=== PATIENT | female | born 1985 | race Caucasian/White ===

== ENCOUNTER 2018-06-05 15:27 | Emergency (ER) | payer SELFPAY ==
[~2018-06-05] VITALS: Ht 175.3 cm; Wt 98.9 kg
[2018-06-05] MEDS ORDERED: LIDOCAINE 2% VISCOUS 15 ML UDC PO ONE (15:45)
[2018-06-05] MEDS ORDERED: ANTACID SUSP 30 ML UDC (MYLANTA) PO ONE (15:45)
--- NOTE | 2018-06-05 15:51 | ED Chest Pain ---
General Chief Complaint: Chest Pain Stated Complaint: CHEST PAINS, SOB Source: patient, family Exam Limitations: no limitations History of Present Illness Date Seen by Provider: Jun 05, 2018 Time Seen by Provider: 15:31 Initial Comments Here with report of central chest pain at the area of the low sternum that sometimes radiates a little bit to the side each way. Onset one hour ago. Pain is sharp and burning. She feels short of breath. This occurred at the end of work. Denies any recent surgeries or long trips. Denies recent trauma. Denies nausea or vomiting. Timing/Duration: 1 hour Severity/Quality: moderate, burning, sharp Location: central Radiation: epigastric Activities at Onset: none Prior CP/Workup: no prior chest pain Modifying Factors: improves with rest ASA po DIRECTOR OF REHABILITATIVE SERVICES: No NTG SL DIRECTOR OF REHABILITATIVE SERVICES: No Associated Symptoms: No back pain, No nausea/vomiting; shortness of breath; No weakness Allergies and Home Medications Allergies Coded Allergies: No Known Drug Allergies (Verified Allergy, Unknown, 11/05/07) Patient Home Medication List Home Medication List Reviewed: Yes Review of Systems Review of Systems Constitutional: see HPI; No chills, No fever EENTM: Nose Congestion; No Throat Pain Respiratory: Denies Cough; Shortness of Air Cardiovascular: Chest Pain; Denies Edema, Denies Irregular Heart Rate Gastrointestinal: See HPI; Denies Nausea, Denies Vomiting Genitourinary: No Symptoms Reported Musculoskeletal: no symptoms reported Skin: no symptoms reported Psychiatric/Neurological: No Symptoms Reported All Other Systems Reviewed Negative Unless Noted: Yes Past Kjgvbbq-Qpryyw-Tbjbvk Hx Past Med/Social Hx: Reviewed Nursing Past Med/Soc Hx Patient Social History Alcohol Use: Denies Use Recreational Drug Use: No Smoking Status: Current Everyday Smoker Recent Foreign Travel: No Contact w/Someone Who Travel: No Past Medical History Surgeries: No Respiratory: No Cardiac: No Neurological: No : No Reproductive Disorders: No Gastrointestinal: Yes Gastroesophageal Reflux Musculoskeletal: No Endocrine: No Cancer: No Psychosocial: No Family Medical History Reviewed Nursing Family Hx No Pertinent Family Hx Physical Exam Vital Signs Vital Signs - First Documented 06/05/18 15:30 Temp 97.1 Pulse 77 Resp 16 B/P (MAP) 104/78 (87) Pulse Ox 99 Capillary Refill : Height, Weight, BMI Height: '" Weight: lbs. oz. kg; BMI Method: General Appearance: No Apparent Distress, WD/WN HEENT: PERRL/EOMI, Pharynx Normal Neck: Non Tender, Supple Respiratory: Lungs Clear, Normal Breath Sounds, Other (tender along the anterior chest wall over the lower sternum and reproducible.) Cardiovascular: Regular Rate, Rhythm, No Murmur Gastrointestinal: Non Tender, Soft Extremity: Normal Range of Motion, Non Tender Neurologic/Psychiatric: Alert, Oriented x3 Progress/Results/Core Measures Results/Orders Lab Results Laboratory Tests Test 06/05/18 15:43 Range/Units White Blood Count 5.5 4.3-11.0 10^3/uL Red Blood Count 4.24 L 4.35-5.85 10^6/uL Hemoglobin 13.4 11.5-16.0 G/DL Hematocrit 39 35-52 % Mean Corpuscular Volume 93 80-99 FL Mean Corpuscular Hemoglobin 32 25-34 PG Mean Corpuscular Hemoglobin Concent 34 32-36 G/DL Red Cell Distribution Width 12.6 10.0-14.5 % Platelet Count 259 130-400 10^3/uL Mean Platelet Volume 10.6 H 7.4-10.4 FL Neutrophils (%) (Auto) 60 42-75 % Lymphocytes (%) (Auto) 32 12-44 % Monocytes (%) (Auto) 6 0-12 % Eosinophils (%) (Auto) 1 0-10 % Basophils (%) (Auto) 0 0-10 % Neutrophils # (Auto) 3.3 1.8-7.8 X 10^3 Lymphocytes # (Auto) 1.7 1.0-4.0 X 10^3 Monocytes # (Auto) 0.3 0.0-1.0 X 10^3 Eosinophils # (Auto) 0.1 0.0-0.3 10^3/uL Basophils # (Auto) 0.0 0.0-0.1 10^3/uL D-Dimer 0.27 0.00-0.49 UG/ML Sodium Level 142 135-145 MMOL/L Potassium Level 3.7 3.6-5.0 MMOL/L Chloride Level 104 98-107 MMOL/L Carbon Dioxide Level 25 21-32 MMOL/L Anion Gap 13 5-14 MMOL/L Blood Urea Nitrogen 5 L 7-18 MG/DL Creatinine 0.70 0.60-1.30 MG/DL Estimat Glomerular Filtration Rate > 60 BUN/Creatinine Ratio 7 Glucose Level 70 70-105 MG/DL Calcium Level 8.9 8.5-10.1 MG/DL Corrected Calcium 8.7 8.5-10.1 MG/DL Magnesium Level 1.8 1.8-2.4 MG/DL Total Bilirubin 0.3 0.1-1.0 MG/DL Aspartate Amino Transf (AST/SGOT) 15 5-34 U/L Alanine Aminotransferase (ALT/SGPT) 16 0-55 U/L Alkaline Phosphatase 48 40-136 U/L Troponin T < 6 <=10 NG/L Total Protein 7.0 6.4-8.2 GM/DL Albumin 4.3 3.2-4.5 GM/DL Lipase 36 8-78 U/L My Orders Orders - YULIANA MEJIA MD Cbc With Automated Diff (06/05/18 15:39) Magnesium (06/05/18 15:39) Chest 1 View Ap/Pa Only (06/05/18 15:39) Ekg Tracing (06/05/18 15:39) Comprehensive Metabolic Panel (06/05/18 15:39) Monitor-Rhythm Ecg Trace Only (06/05/18 15:39) Saline Lock/Iv-Start (06/05/18 15:39) Fibrin Degradation Products (06/05/18 15:39) Lidocaine 2% Viscous 15 Ml (Xylocaine Vi (06/05/18 15:45) Antacid Suspension (Mylanta Suspension (06/05/18 15:45) Myoglobin Serum (06/05/18 15:44) Lipase (06/05/18 15:50) Aspirin Chewable Tablet (Baby Aspirin Ch (06/05/18 16:06) Ketorolac Injection (Toradol Injection) (06/05/18 16:06) Troponin T (06/05/18 16:54) Medications Given in ED Current Medications Medications Dose Ordered Sig/Johanne Route Start Time Stop Time Status Last Admin Dose Admin Al Hydrox/Mg Hydrox/Simethicone 30 ml ONCE ONCE PO 06/05/18 15:45 06/05/18 15:46 DC 06/05/18 15:49 30 ML Lidocaine HCl 15 ml ONCE ONCE PO 06/05/18 15:45 06/05/18 15:46 DC 06/05/18 15:49 15 ML Vital Signs/I&O 06/05/18 15:30 Temp 97.1 Pulse 77 Resp 16 B/P (MAP) 104/78 (87) Pulse Ox 99 Progress Progress Note : Progress Note Seen and evaluated. IV, labs, EKG and chest x-ray ordered. GI cocktail ordered. Monitor patient. 1605: GI cocktails not really helping. Toradol 30 mg IV and aspirin 324 mg by mouth ordered. Monitor patient. 1705: Feeling better now. Patient will initiate omeprazole as outpatient and follow up with her doctor for possible referral to surgeon for upper endoscopy. This was discussed with the patient. She verbalizes understanding. Discharged home with return precautions. Patient verbalize understanding instructions and agreement with plan. Initial ECG Impression Date: Jun 05, 2018 Initial ECG Impression Time: 15:31 Initial ECG Rate: 79 Initial ECG Rhythm: Normal Sinus Initial ECG Comparisson: No Previous ECG Available Comment Normal sinus rhythm with normal axis. No evidence of ST elevation [place]. No previous available for comparison. Interpreted by me. Diagnostic Imaging Diagonstic Imaging: Xray Plain Films/CT/US/NM/MRI: chest Comments [facility] [place], [place] NAME: SERGIO PATRICK Hannah [facility] REC#: [id number] PT STATUS: REG ER : 1985 PHYSICIAN: YULIANA MEJIA MD ADMIT DATE: 06/05/18/ER FS Draft Date of Exam:06/05/18 CHEST 1 VIEW AP/PA ONLY INDICATION: Chest pain FINDINGS: The lungs are clear. The heart and vessels normal. There is no effusion or pneumothorax. IMPRESSION: Acute appearing abnormality. Dictated on workstation # [id number] Dict: 06/05/18 1606 Trans: 06/05/18 1607 [facility] [id number] Interpreted by: BENNY TAN Electronically signed by: Departure Impression Primary Impression: Epigastric abdominal pain Additional Impression: Chest pain Qualified Codes: R07.9 - Chest pain, unspecified Disposition: 01 HOME, SELF-CARE Condition: Improved Departure-Patient Inst. Decision time for Depature: 17:06 Referrals: CAMI TORRES MD (PCP) Primary Care Physician NO,LOCAL PHYSICIAN (Family) Primary Care Physician Patient Instructions: Chest Pain, Acid Reflux (Gastroesophageal Reflux Disease) , Adult (DC) Add. Discharge Instructions: All discharge instructions reviewed with patient and/or family. Voiced understanding. You may initiate kbzz-wyp-sytmtuq omeprazole 20 mg daily for the next 2 weeks and may take it up to 6 weeks as needed for stomach upset. You may continue the Zantac (ranitidine) with that. You should decrease smoking and soda intake as both of these will irritate her stomach. Otherwise drink plenty of fluids and eat a normal, non-spicy diet. Follow up with your doctor within one week for recheck and further evaluation and for possible referral for 2 surgeon for upper endoscopy disease (scope). Return for worse pain, fever, vomiting, weakness, breathing problems or other concerns as needed. YULIANA MEJIA MD Jun 05, 2018 15:51
[2018-06-05 15:58] LABS: HEMATOCRIT 39 % (35-52); HEMOGLOBIN 13.4 G/DL (11.5-16.0); MEAN CORPUSCULAR HEMOGLOBIN 32 PG (25-34); MEAN CORPUSCULAR HGB CONC 34 G/DL (32-36); MEAN CORPUSCULAR VOLUME 93 FL (80-99); PLATELET COUNT 259 10^3/uL (130-400); RED CELL DISTRIBUTION WIDTH 12.6 % (10.0-14.5); WHITE BLOOD COUNT 5.5 10^3/uL (4.3-11.0)
[2018-06-05 15:59] LABS: BASOPHILS % (AUTO) 0 % (0-10); EOSINOPHILS # (AUTO) 0.1 10^3/uL (0.0-0.3); EOSINOPHILS % (AUTO) 1 % (0-10); LYMPHOCYTES # (AUTO) 1.7 X 10^3 (1.0-4.0); LYMPHOCYTES % (AUTO) 32 % (12-44); MEAN PLATELET VOLUME 10.6 FL (7.4-10.4); MONOCYTES # (AUTO) 0.3 X 10^3 (0.0-1.0); MONOCYTES % (AUTO) 6 % (0-12); NEUTROPHILS # (AUTO) 3.3 X 10^3 (1.8-7.8); NEUTROPHILS % (AUTO) 60 % (42-75)
[2018-06-05] MEDS ORDERED: ASPIRIN 81 MG CHEW (CHILDREN'S ASA) PO STA (16:06)
[2018-06-05] MEDS ORDERED: KETOROLAC 30 MG/ML VIAL IVP STA (16:06)
--- NOTE | 2018-06-05 16:08 | Diagnostic Imaging Report ---
INDICATION: Chest pain FINDINGS: The lungs are clear. The heart and vessels normal. There is no effusion or pneumothorax. IMPRESSION: Acute appearing abnormality. Dictated by: Dictated on workstation # [id number]
[2018-06-05 16:19] LABS: CARBON DIOXIDE 25 MMOL/L (21-32); CHLORIDE 104 MMOL/L (98-107); POTASSIUM 3.7 MMOL/L (3.6-5.0); SODIUM 142 MMOL/L (135-145)
[2018-06-05 16:20] LABS: ALANINE AMINOTRANSFERASE 16 U/L (0-55); ALBUMIN 4.3 GM/DL (3.2-4.5); ALKALINE PHOSPHATASE 48 U/L (40-136); BILIRUBIN,TOTAL 0.3 MG/DL (0.1-1.0); BUN/CREATININE RATIO 7; CALCIUM 8.9 MG/DL (8.5-10.1); GFR ESTIMATED > 60; GLUCOSE 70 MG/DL (70-105); MAGNESIUM 1.8 MG/DL (1.8-2.4)
[2018-06-05 17:37] VITALS: BP 114/70
== END 2018-06-05 17:39 | disposition home or self-care (01) ==
LOC: EDUNIT# 15:27 → ER FS 15:29
DX: R10.13 Epigastric pain (principal); R07.89 Other chest pain; K21.9 Gastro-esophageal reflux disease without esophagitis; F17.200 Nicotine dependence, unspecified, uncomplicated
CPT/HCPCS: 71045; 80053; 83690; 83735; 84484; 85025; 85379; 93041; 96374

== ENCOUNTER 2019-04-15 18:30 | Emergency (ER) | payer SELFPAY ==
[~2019-04-15] VITALS: Ht 178 cm; Wt 99.4 kg
[2019-04-15 19:02] LABS: BILIRUBIN,URINE NEGATIVE (NEGATIVE); CLARITY,URINE CLEAR; COLOR,URINE YELLOW; GLUCOSE, URINE (UA) NEGATIVE (NEGATIVE); KETONES,URINE NEGATIVE (NEGATIVE); NITRITE,URINE NEGATIVE (NEGATIVE); PH,URINE 5.5 (5-9); PROTEIN,URINE NEGATIVE (NEGATIVE)
[2019-04-15 19:03] LABS: BACTERIA,URINE FEW /HPF; LEUKOCYTE ESTERASE ,URINE NEGATIVE (NEGATIVE); WBC,URINE RARE /HPF
--- NOTE | 2019-04-15 19:55 | ED GU-Female ---
General Chief Complaint: INFECTIOUS DISEASES PHYSICIAN Stated Complaint: BACK PAIN/IRREGULAR MENSTRUAL CYCLE Nursing Triage Note: Pt presents to ED reporting vaginal bleeding starting last night with a period 2 weeks ago. Pt developed back pain 3 hrs ago with this. Nursing Sepsis Screen: No Definite Risk Source: patient, family History of Present Illness Date Seen by Provider: Apr 15, 2019 Time Seen by Provider: 19:08 Initial Comments 33-year-old female presenting with complaints of irregular vaginal bleeding and low back pain. She states that she had her last menstrual period 2 weeks ago and it lasted approximately 7 days instead of her normal 3-4. Then she had some bleeding start again last night. She is having spotting at this point. She had some low back pain that started last night as well. She did a test at home and it was negative. She is under some extra stress with trying to plan awaiting as well as having some irregular sleep cycles right now. She was unsure why her menstrual cycles were irregular and came to the emergency department seeking some answers. She denies any pain with urination. She is not having any vaginal discharge. Allergies and Home Medications Allergies Coded Allergies: No Known Drug Allergies (Verified Allergy, Unknown, 11/05/07) Patient Home Medication List Home Medication List Reviewed: Yes Review of Systems Review of Systems Constitutional: No chills, No fever EENTM: no symptoms reported Respiratory: no symptoms reported Cardiovascular: no symptoms reported Gastrointestinal: no symptoms reported Genitourinary: see HPI Musculoskeletal: back pain (low) Skin: no symptoms reported Psychiatric/Neurological: No Symptoms Reported Past Sgbqpnk-Nqyvpw-Lgghfc Hx Past Med/Social Hx: Reviewed Nursing Past Med/Soc Hx Patient Social History Alcohol Use: Occasionally Uses Recreational Drug Use: No Smoking Status: Current Everyday Smoker Type Used: Cigars 2nd Hand Smoke Exposure: Yes Recent Foreign Travel: No Contact w/Someone Who Travel: No Recent Infectious Disease Expo: No Physical Abuse: No Sexual Abuse: No Mistreated: No Fear: No Seasonal Allergies Seasonal Allergies: No Past Medical History Surgeries: No Respiratory: No Cardiac: No Neurological: No : No Last Menstrual Period: Apr 01, 2019 Reproductive Disorders: No Genitourinary: No Gastrointestinal: Yes Gastroesophageal Reflux Musculoskeletal: No Endocrine: No HEENT: No Cancer: No Psychosocial: No Integumentary: No Blood Disorders: No Family Medical History No Pertinent Family Hx Physical Exam Vital Signs Vital Signs - First Documented 04/15/19 18:40 Temp 36.1 Pulse 83 Resp 16 B/P (MAP) 119/83 (95) Pulse Ox 97 O2 Delivery Room Air Capillary Refill : Less Than 3 Seconds Height, Weight, BMI Height: 5'9.00" Weight: 218lbs. oz. 98.562794pp; 31.00 BMI Method:Stated General Appearance: WD/WN, no apparent distress HEENT: PERRL/EOMI, pharynx normal Neck: non-tender, full range of motion, supple, normal inspection Cardiovascular: normal peripheral pulses, regular rate, rhythm Respiratory: chest non-tender, lungs clear, normal breath sounds Gastrointestinal: normal bowel sounds, non tender, soft, no pulsatile mass Back: normal inspection; No muscle spasm; vertebral tenderness (low lumbar area and across the low part of her back) Extremities: normal range of motion, normal capillary refill Neurologic/Psychiatric: contracts paralegal II-XII nml as tested, alert, normal mood/affect, oriented x 3 Skin: normal color, warm/dry Progress/Results/Core Measures Suspected Sepsis Recent Fever Within 48 Hours: No Infection Criteria Present: None New/Unexplained Altered Menta: No Sepsis Screen: No Definite Risk SIRS Temperature: Pulse: 83 Respiratory Rate: 16 Blood Pressure 119 /83 Mean: 95 Results/Orders Lab Results Laboratory Tests Test 04/15/19 18:40 Range/Units Urine Color YELLOW Urine Clarity CLEAR Urine pH 5.5 5-9 Urine Specific [place] >=1.030 1.016-1.022 Urine Protein NEGATIVE NEGATIVE Urine Glucose (UA) NEGATIVE NEGATIVE Urine Ketones NEGATIVE NEGATIVE Urine Nitrite NEGATIVE NEGATIVE Urine Bilirubin NEGATIVE NEGATIVE Urine Urobilinogen 0.2 < = 1.0 MG/DL Urine Leukocyte Esterase NEGATIVE NEGATIVE Urine RBC (Auto) 3+ H NEGATIVE Urine RBC 2-5 H /HPF Urine WBC RARE /HPF Urine Squamous Epithelial Cells 2-5 /HPF Urine Crystals NONE /LPF Urine Bacteria FEW H /HPF Urine Casts NONE /LPF Urine Mucus SMALL H /LPF Urine Culture Indicated NO My Orders Orders - PENG MERLOS MD Urine Bedside (04/15/19 18:34) Ua Culture If Indicated (04/15/19 18:34) Vital Signs/I&O 04/15/19 04/15/19 18:40 19:57 Temp 36.1 36.1 Pulse 83 83 Resp 16 16 B/P (MAP) 119/83 (95) 119/83 (95) Pulse Ox 97 97 O2 Delivery Room Air Capillary Refill : Less Than 3 Seconds Blood Pressure Mean: 95 Progress Note : Progress Note Counseled that UA was negative other than blood and Urine test here was also negative. Advised that we could perform a CT scan but an ultrasound would give more detailed information especially regarding the uterus and ovaries. This would have to be done more during the day from [facility] or she could return to the emergency department during the day tomorrow. The urine was concentrated to drinking more water and fluids to be better hydrated might help with her symptoms as well. Stress is certainly a factor that could affect her menses. If she wanted to do hormone levels that would be best performed by her primary or by Dr. Paulino or printing gray cloth tender of her choice She opted to try pushing fluids and rest at home. She will see about following up for an ultrasound. Given a note so that she could take tomorrow off to try and rest and push fluids and follow-up for an ultrasound if having more concerns during the day Departure Impression Primary Impression: Irregular menstrual bleeding Additional Impression: Low back pain Qualified Codes: M54.5 - Low back pain Disposition: HOME, SELF-CARE Condition: Stable Departure-Patient Inst. Decision time for Depature: 19:53 Referrals: CAMI TORRES MD (PCP) Primary Care Physician NO,LOCAL PHYSICIAN (Family) Primary Care Physician TALAT PAULINO DO Patient Instructions: IRREGULAR VAGINAL BLEEDING, Low Back Pain (DC) Add. Discharge Instructions: Check back with [facility] or Gynecology for hormone testing or ultrasound to see why you were having irregular bleeding and low back pain Try to drink more fluids and water for hydration Try anti-inflammatory medicine such as ibuprofen or naproxen for pain All discharge instructions reviewed with patient and/or family. Voiced understanding. Work/School Note: Work Release Form Date Seen in the Emergency Department: Apr 15, 2019 Return to Work: Apr 19, 2019 Restrictions: No Restrictions PENG MERLOS MD Apr 15, 2019 19:54
[2019-04-15 19:57] VITALS: BP 119/83
== END 2019-04-15 19:57 | disposition home or self-care (01) ==
LOC: EDUNIT# 18:30 → ER FS 18:32
DX: N92.6 Irregular menstruation, unspecified (principal); M54.5 Low back pain; F17.290 Nicotine dependence, other tobacco product, uncomplicated
CPT/HCPCS: 81000; 84703; 99282

== ENCOUNTER 2021-05-20 13:56 | Emergency (ER) | payer SELFPAY ==
[~2021-05-20] VITALS: Ht 175.3 cm; Wt 86.2 kg
--- NOTE | 2021-05-20 14:40 | ED GU-Female ---
General Chief Complaint: - Reproductive Stated Complaint: ABNORMAL VAG BLEEDING/CLOTS Nursing Triage Note: PT AMB TO RM 6 W REPORTS OF STARTING PERIOD ON FRIDAY, PT C/O PASSING "VERY LARGE" CLOTS THAT ARE PUSHING HER TAMPONS OUT. PT REPORTS HER PERIOD IS USUALLY 4 DAYS IN DURATION, THIS PERIOD HAS BEEN 7 DAYS IN DURATION OF TODAY. PT ALSO C/O LIGHTHEADEDNESS AND FATIGUE BEGINNING TODAY. PT A&OX4, DENIES PAIN. Source: patient Exam Limitations: no limitations (KINZA LYN STUDENT) History of Present Illness Date Seen by Provider: May 20, 2021 Time Seen by Provider: 14:25 Initial Comments Patient is a 35 year old female who presents to the ED with complaints of p rolonged vaginal bleeding and large clots. Patient reports her usual menstrual period lasts 4 days but this time she's been bleeding and passing large clots for 7 days. She denies ever having this happen before. Denies trauma to the vagina. She had a leep procedure in july of 2019 and since that time has not had any abnormal/prolonged bleeding per her report. Denies other PMH. Denies blood thinners. Denies drug use. Smokes 1ppd x 20 years. Denies dysuria, frequency, urgency, fevers, flank pain, and abdominal pain. Reports mild dizziness. Timing/Duration: week Activities at Onset: none Prior Genitourinary Problems: none Sexual [place] History: single partner Associated Symptoms: No dysuria, No fever/chills, No lower back pain, No nausea/vomiting, No urinary frequency (KINZA LYN STUDENT) Allergies and Home Medications Allergies Coded Allergies: No Known Drug Allergies (Verified Allergy, Unknown, 11/05/07) Patient Home Medication List Home Medication List Reviewed: Yes (DENVER PATINO MD) Review of Systems Review of Systems Constitutional: No chills, No diaphoresis; dizziness; No fever EENTM: see HPI; No blurred vision, No double vision Respiratory: no symptoms reported; No cough, No short of breath Cardiovascular: no symptoms reported; No chest pain, No edema, No palpitations Gastrointestinal: No abdominal pain, No constipation, No diarrhea Genitourinary: no symptoms reported; denies burning, denies discharge, denies dysuria, denies frequency, denies flank pain : No LMP: May 20, 2021 Musculoskeletal: no symptoms reported; No back pain, No joint pain Skin: no symptoms reported; No change in color, No change in hair/nails Psychiatric/Neurological: No Symptoms Reported; Denies Anxiety, Denies Depressed Endocrine: No Symptoms Reported; Denies Excessive Sweating, Denies Flushing Hematologic/Lymphatic: No Symptoms Reported; Denies Easy Bleeding, Denies Easy Bruising (KINZA LYN [employer] STUDENT) All Other Systemes Reviewed Negative Unless Noted: Yes (RICHARD LYNGreenopedia STUDENT) Past Hmmlmtc-Bzwdpo-Vuupkh Hx Patient Social History Tobacco Use?: Yes Tobacco type used: Cigarettes Smoking Status: Current Everyday Smoker (1ppd x 20 years) Smokeless Tobacco Frequency: Never a User Use of E-Cig and/or Vaping dev: No Use of E-Cig and/or Vaping [place]: Never a User Substance use?: No (History of meth use, clean for 5 years) Alcohol Use?: Yes Alcohol Frequency: Once in a while (RICHARD LYNGreenopedia ESPINOZA) Immunizations Up To Date Tetanus Booster (TDap): Unknown Influenza Vaccine Up-to-Date: No; Not Current First/Initial COVID19 Vaccinat: NA (RIKIRegalister) Seasonal Allergies Seasonal Allergies: No (RICHARD LYNHadron Systems) Past Medical History Surgeries: Yes (LEE july 2019) Respiratory: No Cardiac: No Neurological: No : No Last Menstrual Period: May 14, 2021 Reproductive Disorders: No Gastrointestinal: Yes Gastroesophageal Reflux Musculoskeletal: No Endocrine: No HEENT: No Loss of Vision: Denies Hearing Impairment: Denies Cancer: No Psychosocial: No Integumentary: No Blood Disorders: No (RICHARD LYNGreenopedia STUDENT) Family Medical History No Pertinent Family Hx (RICHARD LYNGreenopedia STUDENT) Physical Exam Vital Signs Vital Signs - First Documented 05/20/21 14:23 Temp 37.0 Pulse 77 Resp 20 B/P (MAP) 133/82 (99) Pulse Ox 100 O2 Delivery Room Air (DENVER PATINO MD) Vital Signs Capillary Refill : Less Than 3 Seconds (RICHARD LYNGreenopedia STUDENT) Height, Weight, BMI Height: 5'9.00" Weight: 218lbs. oz. 98.078323pn; 28.00 BMI Method:Stated General Appearance: WD/WN, no apparent distress HEENT: PERRL/EOMI, pharynx normal, other (Poor dentition) Neck: non-tender, full range of motion, supple Cardiovascular: normal peripheral pulses, regular rate, rhythm, no murmur Respiratory: chest non-tender, lungs clear, normal breath sounds, no respiratory distress Gastrointestinal: normal bowel sounds, non tender, soft Rectal: deferred Back: normal inspection, no CVA tenderness, no vertebral tenderness Extremities: normal range of motion, non-tender, normal inspection, no pedal edema, normal capillary refill Neurologic/Psychiatric: no motor/sensory deficits, alert, normal mood/affect, oriented x 3 Skin: normal color, warm/dry; No rash Lymphatic: no adenopathy (Head and Neck) (KINZA LYN STUDENT) Pelvic: other (DECLINED) (DENVER PATINO MD) Progress/Results/Core Measures Suspected Sepsis SIRS Temperature: Pulse: 77 Respiratory Rate: 20 Blood Pressure 133 /82 Mean: 99 (KINZA LYN STUDENT) Results/Orders Lab Results (DENVER PATINO MD) My Orders (DENVER PATINO MD) Vital Signs/I&O (DENVER PATINO MD) Vital Signs/I&O Capillary Refill : Less Than 3 Seconds (KINZA LYN STUDENT) Blood Pressure Mean: 99 Progress Note : Time: 15:40 Progress Note Patient CBC reviewed and within normal limits, she is not anemic. Her test is negative. I talked to her about a pelvic exam here in the emergency department at this time she declines as she does need follow-up with gynecology because she has not had a Pap smear in 2 years. She states she was supposed to have one after her LEEP procedure every 6 months but she did not follow-up as instructed. She would like to see a provider in [place]. I told her we would try and find her names of providers to follow-up with. Her vital signs are stable. Her exam is benign. Again pelvic exam is deferred at this time. All questions are sought and answered. Patient is stable for discharge. (DENVER PATINO MD) Departure Impression Primary Impression: Dysfunctional uterine bleeding Disposition: 01 HOME, SELF-CARE Condition: Stable Departure-Patient Inst. Decision time for Depature: 15:44 (DENVER PATINO MD) Referrals: [facility]/ JOLLY,LOCAL PHYSICIAN (PCP) Primary Care Physician Patient Instructions: Heavy Periods ED Add. Discharge Instructions: You can take lcqh-yri-ldawbsk Aleve, 2 tablets which is 500 mg every 12 hours/twice daily with food to help lessen vaginal bleeding and cramping. You will need to call [facility] or an independent OLIVE BRINE TESTER in [place] for a follow-up appointment. Please do this tomorrow. You need a repeat Pap smear and further exam to evaluate why you are having such heavy bleeding. If you have symptoms of worsening bleeding especially with a passing out spell please come back to the emergency department for reevaluation. Verification and Attestation of Medical Student E/M Service A medical student performed and documented this service in my presence. I reviewed and verified all information documented by the medical student and made modifications to such information, when appropriate. I personally performed the physical exam and medical decision making. Denver Patino, May 20, 2021,15:45 (DENVER PATINO MD) KINZA LYN MED STUDENT May 20, 2021 14:40 DENVER PATINO MD May 20, 2021 15:33
[2021-05-20 14:55] LABS: BASOPHILS % (AUTO) 0 % (0-10); EOSINOPHILS # (AUTO) 0.1 10^3/uL (0.0-0.3); EOSINOPHILS % (AUTO) 1 % (0-10); HEMATOCRIT 39 % (35-52); HEMOGLOBIN 13.2 g/dL (11.5-16.0); LYMPHOCYTES # (AUTO) 2.1 X 10^3 (1.0-4.0); LYMPHOCYTES % (AUTO) 27 % (12-44); MEAN CORPUSCULAR HEMOGLOBIN 32 pg (25-34); MEAN CORPUSCULAR HGB CONC 34 g/dL (32-36); MEAN CORPUSCULAR VOLUME 95 fL (80-99); MEAN PLATELET VOLUME 10.1 fL (9.0-12.2); MONOCYTES # (AUTO) 0.3 X 10^3 (0.0-1.0); MONOCYTES % (AUTO) 4 % (0-12); NEUTROPHILS # (AUTO) 5.4 X 10^3 (1.8-7.8); NEUTROPHILS % (AUTO) 67 % (42-75); PLATELET COUNT 349 10^3/uL (130-400); WHITE BLOOD COUNT 7.9 10^3/uL (4.3-11.0)
[2021-05-20] MEDS ORDERED: NAPROXEN 250 MG (NAPROSYN) TABLET PO ONE (15:45)
[2021-05-20 15:55] VITALS: BP 134/97
== END 2021-05-20 15:55 | disposition home or self-care (01) ==
LOC: EDUNIT# 13:56 → ER 13:57
DX: N93.8 Other specified abnormal uterine and vaginal bleeding (principal); F17.210 Nicotine dependence, cigarettes, uncomplicated; Z32.02 Encounter for pregnancy test, result negative
CPT/HCPCS: 36415; 84703; 85025

== ENCOUNTER 2021-12-05 05:30 | Outpatient (CLI) | payer SELFPAY ==
[~2021-12-05] VITALS: Ht 175.3 cm; Wt 92.2 kg
== END 2021-12-05 14:44 | disposition home or self-care (01) ==
LOC: PREOP 05:30
PROVIDERS: ATTEND Obstetrics & Gynecology
DX: Z01.818 Encounter for other preprocedural examination (principal)

== ENCOUNTER 2021-12-12 11:20 | Day surgery (SDC) | payer OTHER ==
[~2021-12-12] VITALS: Ht 175.3 cm; Wt 92.2 kg
[2021-12-12] VITALS (10 sets, daily range): BP systolic 116–143; BP diastolic 66–86
[2021-12-12] MEDS ORDERED: ceFAZolin INJECTION 1,000 MG in NS (IVPB) 50 ML IV ONE (12:00)
[2021-12-12] MEDS ORDERED: LACTATED RINGERS 1,000 ML IV PRN (12:00)
[2021-12-12] MEDS ORDERED: LIDOCAINE/EPI 2% 1:200,00 (XYLOCAINE) 10 ML VIAL ONE (12:14)
[2021-12-12] MEDS ORDERED: ROCURONIUM 10 MG/ML 5 ML SYRINGE IV ONE (12:17)
[2021-12-12] MEDS ORDERED: MIDAZOLAM 2 MG/2 ML (VERSED) VIAL ONE (12:17)
[2021-12-12] MEDS ORDERED: ONDANSETRON 4 MG/2 ML (SDV) Z0FRAN ONE ×2 (12:17→15:41)
[2021-12-12] MEDS ORDERED: fentaNYL INJ 100 MCG/2 ML AMP ONE (12:17)
[2021-12-12] MEDS ORDERED: LIDOCAINE PF 2% 5 ML (XYLOCAINE) VIAL ONE (12:17)
[2021-12-12] MEDS ORDERED: proPOfol 200 MG/20 ML (DIPRIVAN) VIAL IV ONE (12:17)
[2021-12-12 12:40] LABS: BASOPHILS % (AUTO) 1 % (0-10); EOSINOPHILS # (AUTO) 0.1 10^3/uL (0.0-0.3); EOSINOPHILS % (AUTO) 1 % (0-10); HEMATOCRIT 43 % (35-52); HEMOGLOBIN 14.4 g/dL (11.5-16.0); LYMPHOCYTES % (AUTO) 25 % (12-44); MEAN CORPUSCULAR HEMOGLOBIN 31 pg (25-34); MEAN CORPUSCULAR HGB CONC 34 g/dL (32-36); MEAN CORPUSCULAR VOLUME 91 fL (80-99); MEAN PLATELET VOLUME 10.8 fL (9.0-12.2); MONOCYTES # (AUTO) 0.5 10^3/uL (0.0-1.0); MONOCYTES % (AUTO) 7 % (0-12); NEUTROPHILS # (AUTO) 5.3 10^3/uL (1.8-7.8); NEUTROPHILS % (AUTO) 67 % (42-75); PLATELET COUNT 281 10^3/uL (130-400); WHITE BLOOD COUNT 7.9 10^3/uL (4.3-11.0)
--- NOTE | 2021-12-12 12:49 | Progress Note-Post Operative ---
Post-Operative Progess Note Surgeon (s)/Forestry Aid (s) Surgeon FERNANDO GRIFFITHS MD Forestry Aid: [place] Pre-Operative Diagnosis Menorrhagia/menometrorrhagia/endometrial polyp Post-Operative Diagnosis Same with Extensive appendiceal adhesions and with pathology pending Procedure & Operative Findings Date of Procedure 12/12/21 Procedure Performed/Findings Total laparoscopic hysterectomy with bilateral salpingectomyAnd with adhesiolysis and laparoscopic appendectomy, Cystoscopy Anesthesia Type General Estimated Blood Loss Estimated blood loss (mL): Minimal Specimens/Packing Specimens Removed Uterus and fallopian tubes AndAppendix FERNANDO GRIFFITHS MD Dec 12, 2021 12:49
--- NOTE | 2021-12-12 12:49 | Progress Note-Pre Operative ---
Pre-Operative Progress Note Date of Available H&P: Dec 12, 2021 Date H&P Reviewed: Dec 12, 2021 Time H&P Reviewed: 12:48 History & Physical: H&P Reviewed, Patient Examed Pre-Operative Diagnosis: Menorrhagia/menometrorrhagia/endometrial polyp FERNANDO GRIFFITHS MD Dec 12, 2021 12:49
[2021-12-12] MEDS ORDERED: IBUP-1780 PO ×2 (12:55)
[2021-12-12] MEDS ORDERED: OXYC1TAB87 PO ×2 (12:55)
[2021-12-12] MEDS ORDERED: DOCU100C37 PO ×2 (12:55)
--- NOTE | 2021-12-12 12:57 | Discharge Inst-Surgical ---
Discharge Inst-Surgical Depart Medication/Instructions New, Converted or Re-Newed RX: Transmitted to Pharmacy Consults/Follow Up Patient Instructions: As directed Orders & Referrals Follow Up Appt: Return to clinic in 1 week for suture removal Call to make follow up appt. for patient in 4 weeks. Activity: Rest for 24 hours, than as tolerated. Wound Care: May remove Band-Aid tomorrow. Replace as desired. Keep incisions clean and dry. Wash daily with soap and water. Please call in RX to patient pharmacy. Diet: As tolerated shower or tub bathe as desired. No driving for 24 hours, no alcoholic beverages for 24 hours, and nothing per vagina (no tampons, douching, or intercourse) for 8 weeks. Patient to return to the clinic as soon as possible for: Temperature greater than 101F, Severe Pain, Foul discharge from incision or vagina, Excessive Bleeding (more than a period). Activity Activity as Tolerated: No Diet Discharge Diet: No Restrictions FERNANDO GRIFFITHS MD Dec 12, 2021 12:57
[2021-12-12] MEDS ORDERED: oxyCODONE/APAP 5/325MG (PERCOCET 5) TABLET PO PRN (13:00)
[2021-12-12] MEDS ORDERED: MEPERIDINE (DEMEROL) INJ 50 MG/ML IM PRN (13:00)
[2021-12-12] MEDS ORDERED: PROMETHAZINE INJ 25 MG/ML (PHENERGAN) AMP IM PRN (13:00)
[2021-12-12] MEDS ORDERED: KETOROLAC 30 MG/ML VIAL IV SCH ×2 (13:00→16:30)
[2021-12-12] MEDS ORDERED: ONDANSETRON 4 MG/2 ML (SDV) Z0FRAN IVP PRN ×2 (13:00→14:45)
[2021-12-12] MEDS ORDERED: LIDOCAINE/EPI 2% 1:200,00 (XYLOCAINE) 10 ML VIAL INJ ONE (13:49)
[2021-12-12] MEDS ORDERED: GLYCOPYRROLATE 0.2 MG/ML (ROBINUL) 2 ML VIAL ONE (14:14)
[2021-12-12] MEDS ORDERED: NEOSTIGMINE 3 MG/3 ML VIAL ONE (14:14)
[2021-12-12] MEDS ORDERED: SEVOFLURANE (ULTANE) 15 ML INHAL SOLN ONE (14:28)
[2021-12-12] MEDS ORDERED: KETOROLAC 30 MG/ML VIAL ONE (14:36)
[2021-12-12] MEDS ORDERED: morphine INJ 10 MG/ML 1ML (SYR OR VIAL) ONE (14:36)
[2021-12-12] MEDS ORDERED: morphine INJ 10 MG/ML 1ML (SYR OR VIAL) IVP ONE (14:45)
[2021-12-12] MEDS ORDERED: MEPERIDINE (DEMEROL) INJ 50 MG/ML IVP ONE (14:45)
[2021-12-12] MEDS ORDERED: HYDROmorphone 2 MG/ML VIAL (DILAUDID) IV ONE (14:45)
[2021-12-12] MEDS ORDERED: PROMETHAZINE INJ 25 MG/ML (PHENERGAN) AMP IVP ONE (14:45)
[2021-12-12] MEDS ORDERED: PROMETHAZINE INJ 25 MG/ML (PHENERGAN) AMP ONE (14:49)
[2021-12-12] MEDS: KETOROLAC 30 MG/ML VIAL IV SCH ×2 (15:00→20:14)
[2021-12-12] MEDS: D5 LR IV SOLUTION 1,000 ML IV SCH (17:16)
[2021-12-13] MEDS: D5 LR IV SOLUTION 1,000 ML IV SCH (01:57)
[2021-12-13] MEDS: KETOROLAC 30 MG/ML VIAL IV SCH (01:57)
[2021-12-13 04:00] VITALS: BP 116/71
--- NOTE | 2021-12-13 07:51 | Progress Note ---
Standard Progress Note Progress Notes/Assess & Plan Date Seen by a Provider: Dec 13, 2021 Time Seen by a Provider: 07:50 Progress/Assessment & Plan This patient is without complaint. She is ambulating, voiding, tolerating oral intake well and has good pain control. She is requesting discharge home. Vital Signs Date Time Temp Pulse Resp B/P (MAP) Pulse Ox O2 Delivery O2 Flow Rate FiO2 12/13/21 04:00 36.0 80 18 116/71 (86) 89 Room Air 12/13/21 00:21 Room Air 12/12/21 23:20 36.3 82 16 120/69 (86) 95 Room Air 12/12/21 20:14 36.3 70 16 116/66 (83) 97 Room Air 12/12/21 15:28 35.8 62 16 140/80 (100) 96 Room Air 12/12/21 15:25 36.1 20 137/86 (103) 100 Room Air 12/12/21 15:25 Room Air 12/12/21 15:15 Room Air 12/12/21 15:10 20 139/86 (103) 100 Room Air 12/12/21 15:00 OxyMask 3.00 12/12/21 15:00 20 141/81 (101) 100 OxyMask 3.00 12/12/21 14:50 20 143/82 (102) 100 OxyMask 3.00 12/12/21 14:45 OxyMask 6.00 12/12/21 14:40 20 138/82 (100) 100 OxyMask 6.00 12/12/21 14:32 OxyMask 6.00 12/12/21 14:32 36.8 24 131/81 (98) 100 OxyMask 6.00 12/12/21 11:30 36.0 67 18 122/77 (92) 97 Room Air I & O 12/13/21 07:00 Intake Total 3250 ml Output Total 1075 ml Balance 2175 ml Vital signs are stable. Patient is afebrile. The abdomen is benign. The surgical incisions are clean and dry Extremities show no clubbing or cyanosis. There is no Homans' sign. Assessment and plan Postoperative day #1 status post total laparoscopic hysterectomy with bilateral salping ectomy and laparoscopic appendectomy and cystoscopy. Patient is doing well will be discharged home with follow-up in clinic Final Diagnosis Menometrorrhagia FERNANDO GRIFFITHS MD Dec 13, 2021 07:51
[2021-12-13] MEDS ORDERED: DOCUSATE SODIUM 100 MG (COLACE) CAP PO SCH (09:00)
--- NOTE | 2021-12-13 14:01 | Anesthesia-General Post-Op ---
General Patient Condition Mental Status/LOC: Same as Preop Cardiovascular: Satisfactory Nausea/Vomiting: Absent Respiratory: Satisfactory Pain: Controlled Complications: Absent Post Op Complications Complications None Follow Up Care/Instructions Patient Instructions None needed. Anesthesia/Patient Condition Patient Condition Patient was already discharged to home during postop rounds but she was doing well, no complaints, stable vital signs, no apparent adverse anesthesia problems noted prior to her discharge. No complications reported per nursing. GARY MORA DO Dec 13, 2021 14:01
--- NOTE | 2021-12-14 00:48 | OPERATIVE REPORT ---
DATE OF SERVICE: 12/12/2021 PREOPERATIVE DIAGNOSES: Menorrhagia and menometrorrhagia as well as endometrial polyps. POSTOPERATIVE DIAGNOSES: Menorrhagia and menometrorrhagia as well as endometrial polyps with extensive appendiceal adhesions and appendicitis. OPERATIVE PROCEDURES: Total laparoscopic hysterectomy with bilateral salpingectomy as well as adhesiolysis and laparoscopic appendectomy and cystoscopy. OPERATIVE DESCRIPTION: With the patient in the supine position under satisfactory general anesthesia, she was repositioned in dorsal lithotomy position in the [facility] and prepped and draped in the usual fashion for abdominal and vaginal surgery using the da Damaris equipment for assistance. Weighted speculum placed in posterior fornix of vagina, cervix exposed and grasped anteriorly with single tooth tenaculum. Uterus was sounded to 12 cm with uterine sound. The cervix was then serially dilated with Anthony dilators to accommodate a Hortencia II manipulator, which was placed using a 6 mm x 8 cm uterine probe and a 35 mm colpotomy ring. Sutures of #1 Vicryl placed at 3 and 9 o'clock position of the cervix to affix the uterus to the manipulator. [place] catheter was placed in the urinary bladder. Tenaculum and speculum were removed. The patient was brought in low dorsal lithotomy position. A 12 mm incision was made in the patient's midline 10 cm above the umbilicus. Veress needle was placed through that incision into the abdominal cavity. Correct placement was confirmed with a water drop test. The abdomen was insufflated with 2.4 liters of carbon dioxide, then the Veress needle was removed and an attempt was made to place a 12 mm Optiview laparoscopic port. That was unsuccessful. Rather than try again. A 5 mm incision was made in the patient's left upper quadrant at Yanez's point. A 5 mm port was placed under direct vision with an Optiview port with the 5 mm scope with correct placement confirmed in the abdominal cavity. The midline could be seen and the 12 mm port was placed under direct vision with no trauma to intra-abdominal contents. Ports of 8 mm were then placed 8 cm lateral to the umbilicus also under direct vision. The patient was placed in Trendelenburg allowing the bowel to spill up out of the pelvis. The operative towel was advanced on the patient, docked and operative instrument placed in right and left lateral quadrants and I retired to the da Damaris console. At the console, using a vessel sealer on the right and a bipolar fenestrated grasper on the left, the pelvis was first examined. The uterus was somewhat mottled and somewhat irregular in shape. Both fallopian tubes were normal. Both ovaries were normal. Laparoscope was rotated. The appendix was identified. It was deeply involved in extensive adhesions on the pelvic brim and was somewhat enlarged and tortuous consistent with appendicitis. The adhesions were taken free very carefully and meticulously and then the mesoappendix was divided with the vessel sealer across to the base of the appendix. Appendix was then left in situ for removal later as plan included now appendectomy due to the abnormal appearance. Laparoscope was brought back to the pelvis. The right fallopian tube was grasped and elevated. The mesosalpinx was clamped, cauterized and divided using the vessel sealer. This was continued over to the uteroovarian pedicle. The uteroovarian pedicle was then clamped, cauterized and divided also with the vessel sealer that was continued across the round ligament, down the broad ligament and onto the cardinal ligament on the right. Same procedure was performed on the left, thus allowing for conservation of both ovaries and removal eventually both fallopian tubes. The anterior lower uterine segment peritoneum was now divided. The bladder was carefully dissected down off the lower uterine segment and colpotomy incision was started at 12 o'clock position onto the colpotomy ring. That incision was continued circumferentially until the entire colpotomy ring was disposed and then the uterus with the tubes still attached was extracted through the vagina. The vaginal cuff was closed with a single suture of V-Loc barbed suture starting at the right angle, continuing across to the left angle and taking care to ensure inclusion of the uterine vessel pedicles bilaterally. The last couple of stitches of the suture were used to reapproximate the bladder peritoneum onto the vaginal cuff. Sponge and needle counts were correct at this point. Blood loss was fairly minimal. Both ureters could barely be seen, but appeared to be well out of the way. Decision was made to perform cystoscopy after completion of the laparoscopic portion of the procedure. At this point, the da Damaris equipment was removed and then using a laparoscope in the right lateral quadrant and a grasper in the left lateral quadrant and a stapler in the midline port. The appendix was grasped and elevated. The Endo-JESSICA was placed across the base of the appendix and fired, it severed from the appendix from its attachments. The was placed in Endobag and brought out through the umbilical port. The stump of the appendix was copiously irrigated and then treated with several drops of Betadine solution. With the intra-abdominal portion of the procedure completed, the operative instruments were removed as were the ports. The abdomen was evacuated of insufflating gas in the process of removing the ports. The skin incisions were closed with 3-0 nylon suture. The fascia at the supraumbilical incision was closed with [id number] suture of 2-0 Vicryl. The patient was repositioned in the dorsal lithotomy position for cystoscopy. Using saline as a distending medium, the urinary bladder was examined with the cystoscope showing an intact bladder wall and free efflux of urine from both the right and left ureteral orifice. With free efflux concerned of the integrity of the bladder and the ureters confirmed, the procedure was terminated. The cystoscope was removed. Washington catheter was placed in the urinary bladder. Speculum was placed in the vagina. Vaginal cuff was examined. It was completely reapproximated and completely hemostatic. Sponge and needle counts were correct. Blood loss was minimal. The patient was now uneventfully awakened from her general anesthesia and transferred to recovery room in stable condition. Job ID: [id number] DocumentID: [id number] Dictated Date: 12/13/2021 13:45:18 Thermodynamics Engineer Date: 12/14/2021 00:47:13 Dictated By: FERNANDO GRIFFITHS MD
== END 2021-12-13 07:45 | disposition home or self-care (01) ==
LOC: SDC 11:20 → WS 15:25 → SDC 12-13 07:45
PROVIDERS: ATTEND Obstetrics & Gynecology
DX: N80.03 Adenomyosis of the uterus (principal); K38.0 Hyperplasia of appendix; N84.0 Polyp of corpus uteri; Z87.891 Personal history of nicotine dependence
CPT/HCPCS: 36415; 84703; 85025; 86850; 86900; 86901; 87081; 88304; 88307; 94664

== ENCOUNTER 2021-12-16 12:25 | Emergency (ER) | payer OTHER ==
[~2021-12-16] VITALS: Ht 175.2 cm; Wt 92.2 kg
[~2021-12-16 12:25] MED LIST: DOCU100C37 PO; IBUP-1780 PO; OXYC1TAB87 PO
--- NOTE | 2021-12-16 12:59 | ED General ---
General Chief Complaint: General Problems/Pain Stated Complaint: N/V, SHAKEY, RECENT SURGERY History of Present Illness Date Seen by Provider: Dec 16, 2021 Time Seen by Provider: 12:54 Initial Comments 36-year-old female here for complaints of shaky cold feeling. Patient did have a hysterectomy and appendectomy done a few days ago. Was back to work yesterday but is not feeling well. Still having pain in her belly. No pus. Patient is cold. She also has swelling on the left side of her lower jaw. She does have some dental caries and broken teeth in there. I will see any pus. Patient states that pain started yesterday and the swelling with this morning. He is just taking ibuprofen and Tylenol for this. They gave her Percocets but she does not like the way it makes her feel. 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 She has had nausea with some vomiting. She did have a bowel movement. She is on stool softeners for this after surgery. Allergies and Home Medications Allergies Coded Allergies: No Known Drug Allergies (Verified , 12/05/21) Patient Home Medication List Home Medication List Reviewed: Yes Amoxicillin/Potassium Clav (Amox Tr-K Clv 875-125 mg Tab) 875 Mg-125 Mg Tablet, 1 EACH PO BID Prescribed by: Carlos Childs on 12/16/21 1434 Docusate Sodium (Docusate Sodium) 100 Mg Capsule, 100 MG PO BID Prescribed by: FERNANDO WERNER on 12/12/21 1255 Ibuprofen (Ibuprofen) 800 Mg Tablet, 800 MG PO Q6H PRN for PAIN Prescribed by: FERNANDO WERNER on 12/12/21 1255 Discontinued Medications Oxycodone HCl/Acetaminophen (Percocet 5-325 mg Tablet) 1 Each Tablet, 1 TAB PO Q4H Prescribed by: FERNANDO WERNER on 12/12/21 1256 Review of Systems Review of Systems Constitutional: see HPI Past Acdrbmn-Tuytnk-Ngyjeb Hx Patient Social History Tobacco Use?: No Immunizations Up To Date Tetanus Booster (TDap): Unknown First/Initial COVID19 Vaccinat: NA Second COVID19 Vaccination Jose: NA Third COVID19 Vaccination Date: NA Seasonal Allergies Seasonal Allergies: No Past Medical History Surgeries: Yes (LEEP july 2019) Respiratory: No Currently Using CPAP: No Currently Using BIPAP: No Cardiac: No Neurological: No Reproductive Disorders: No Female Reproductive Disorders: Endometriosis, Ovarian Cyst Genitourinary: Yes (STRESS ) Gastrointestinal: Yes Gastroesophageal Reflux Musculoskeletal: No Endocrine: No HEENT: No Loss of Vision: Denies Hearing Impairment: Denies Cancer: No Psychosocial: No Integumentary: No Blood Disorders: No Family Medical History No Pertinent Family Hx Physical Exam Vital Signs Vital Signs - First Documented 12/16/21 12:37 Temp 36.5 Pulse 94 Resp 16 B/P (MAP) 131/92 (105) Pulse Ox 100 O2 Delivery Room Air Capillary Refill : Height, Weight, BMI Height: 5'9.00" Weight: 218lbs. oz. 98.289767ss; 30.00 BMI Method:Stated General Appearance: Mild Distress HEENT: PERRL/EOMI, Pharynx Normal, Other (swelling noted left mandibular area. pain with palpation. ) Gastrointestinal: Soft; No Distended, No Guarding; Tenderness (around surgical incision area.) Progress/Results/Core Measures Suspected Sepsis SIRS Temperature: Pulse: Respiratory Rate: Laboratory Tests 12/16/21 13:15: White Blood Count 10.4 Blood Pressure / Mean: Laboratory Tests 12/16/21 13:15: Creatinine 0.66, Platelet Count 279, Total Bilirubin 0.3 Results/Orders Lab Results Laboratory Tests Test 12/16/21 12:33 12/16/21 13:15 Range/Units Urine Color YELLOW Urine Clarity CLEAR Urine pH 8.0 5-9 Urine Specific [place] 1.010 L 1.016-1.022 Urine Protein NEGATIVE NEGATIVE Urine Glucose (UA) NEGATIVE NEGATIVE Urine Ketones NEGATIVE NEGATIVE Urine Nitrite NEGATIVE NEGATIVE Urine Bilirubin NEGATIVE NEGATIVE Urine Urobilinogen 0.2 < = 1.0 MG/DL Urine Leukocyte Esterase NEGATIVE NEGATIVE Urine RBC (Auto) NEGATIVE NEGATIVE Urine RBC NONE /HPF Urine WBC NONE /HPF Urine Squamous Epithelial Cells 25-50 H /HPF Urine Crystals NONE /LPF Urine Bacteria TRACE /HPF Urine Casts NONE /LPF Urine Mucus SMALL H /LPF Urine Culture Indicated NO White Blood Count 10.4 4.3-11.0 10^3/uL Red Blood Count 4.18 3.80-5.11 10^6/uL Hemoglobin 12.9 11.5-16.0 g/dL Hematocrit 38 35-52 % Mean Corpuscular Volume 90 80-99 fL Mean Corpuscular Hemoglobin 31 25-34 pg Mean Corpuscular Hemoglobin Concent 34 32-36 g/dL Red Cell Distribution Width 13.0 10.0-14.5 % Platelet Count 279 130-400 10^3/uL Mean Platelet Volume 10.6 9.0-12.2 fL Immature Granulocyte % (Auto) 0 % Neutrophils (%) (Auto) 82 H 42-75 % Lymphocytes (%) (Auto) 12 12-44 % Monocytes (%) (Auto) 5 0-12 % Eosinophils (%) (Auto) 1 0-10 % Basophils (%) (Auto) 0 0-10 % Neutrophils # (Auto) 8.5 H 1.8-7.8 10^3/uL Lymphocytes # (Auto) 1.2 1.0-4.0 10^3/uL Monocytes # (Auto) 0.6 0.0-1.0 10^3/uL Eosinophils # (Auto) 0.1 0.0-0.3 10^3/uL Basophils # (Auto) 0.0 0.0-0.1 10^3/uL Immature Granulocyte # (Auto) 0.0 0.0-0.1 10^3/uL Neutrophils % (Manual) 80 % Lymphocytes % (Manual) 12 % Monocytes % (Manual) 7 % Basophils % (Manual) 1 % Sodium Level 137 135-145 MMOL/L Potassium Level 4.3 3.6-5.0 MMOL/L Chloride Level 100 98-107 MMOL/L Carbon Dioxide Level 25 21-32 MMOL/L Anion Gap 12 5-14 MMOL/L Blood Urea Nitrogen 8 7-18 MG/DL Creatinine 0.66 0.60-1.30 MG/DL Estimat Glomerular Filtration Rate 117 BUN/Creatinine Ratio 12 Glucose Level 116 H 70-105 MG/DL Calcium Level 9.1 8.5-10.1 MG/DL Corrected Calcium 8.9 8.5-10.1 MG/DL Total Bilirubin 0.3 0.1-1.0 MG/DL Aspartate Amino Transf (AST/SGOT) 13 5-34 U/L Alanine Aminotransferase (ALT/SGPT) 16 0-55 U/L Alkaline Phosphatase 57 40-136 U/L C-Reactive Protein 5.62 H <0.50 MG/DL Total Protein 7.0 6.4-8.2 GM/DL Albumin 4.2 3.2-4.5 GM/DL My Orders Orders - CARLOS CHILDS MD Cbc And Manual Diff (12/16/21 13:02) Comprehensive Metabolic Panel (12/16/21 13:02) Urinalysis (12/16/21 13:02) Crp Fs (12/16/21 13:08) Amoxicillin/Clavulanate Tablet (Augmenti (12/16/21 14:30) Vital Signs/I&O 12/16/21 12/16/21 12:37 14:51 Temp 36.5 36.5 Pulse 94 85 Resp 16 16 B/P (MAP) 131/92 (105) 135/89 Pulse Ox 100 100 O2 Delivery Room Air Room Air Capillary Refill : Progress Note : Time: 14:29 Progress Note Labs reviewed. No signs of systemic infection. Will treat with antibiotic Augmentin. Will discharge home. Departure Impression Primary Impression: Dental infection Disposition: 01 HOME, SELF-CARE Condition: Stable Departure-Patient Inst. Referrals: NO,LOCAL PHYSICIAN (PCP/Family) Primary Care Physician Patient Instructions: Dental Pain (DC) Add. Discharge Instructions: take meds as prescribed. follow up with Primary Care Doctor. All discharge instructions reviewed with patient and/or family. Voiced understanding. Scripts Amoxicillin/Potassium Clav (Amox Tr-K Clv 875-125 mg Tab) 875 Mg-125 Mg Tablet 1 EACH PO BID for 10 Days, #20 TAB Prov: CARLOS CHILDS MD 12/16/21 CARLOS CHILDS MD Dec 16, 2021 12:59
[2021-12-16 13:06] LABS: BILIRUBIN,URINE NEGATIVE (NEGATIVE); CLARITY,URINE CLEAR; COLOR,URINE YELLOW; GLUCOSE, URINE (UA) NEGATIVE (NEGATIVE); KETONES,URINE NEGATIVE (NEGATIVE); LEUKOCYTE ESTERASE ,URINE NEGATIVE (NEGATIVE); NITRITE,URINE NEGATIVE (NEGATIVE); PROTEIN,URINE NEGATIVE (NEGATIVE)
[2021-12-16 13:07] LABS: BACTERIA,URINE TRACE /HPF; SQUAMOUS EPITHELIAL CELL,UR 25-50 /HPF
[2021-12-16 13:20] LABS: BASOPHILS % (AUTO) 0 % (0-10); EOSINOPHILS # (AUTO) 0.1 10^3/uL (0.0-0.3); EOSINOPHILS % (AUTO) 1 % (0-10); HEMATOCRIT 38 % (35-52); HEMOGLOBIN 12.9 g/dL (11.5-16.0); LYMPHOCYTES # (AUTO) 1.2 10^3/uL (1.0-4.0); LYMPHOCYTES % (AUTO) 12 % (12-44); MEAN CORPUSCULAR HEMOGLOBIN 31 pg (25-34); MEAN CORPUSCULAR HGB CONC 34 g/dL (32-36); MEAN CORPUSCULAR VOLUME 90 fL (80-99); MEAN PLATELET VOLUME 10.6 fL (9.0-12.2); MONOCYTES # (AUTO) 0.6 10^3/uL (0.0-1.0); MONOCYTES % (AUTO) 5 % (0-12); NEUTROPHILS # (AUTO) 8.5 10^3/uL (1.8-7.8); NEUTROPHILS % (AUTO) 82 % (42-75); PLATELET COUNT 279 10^3/uL (130-400); WHITE BLOOD COUNT 10.4 10^3/uL (4.3-11.0)
[2021-12-16 13:41] LABS: ALBUMIN 4.2 GM/DL (3.2-4.5); BILIRUBIN,TOTAL 0.3 MG/DL (0.1-1.0); CALCIUM 9.1 MG/DL (8.5-10.1); CREATININE SERUM 0.66 MG/DL (0.60-1.30); POTASSIUM 4.3 MMOL/L (3.6-5.0)
[2021-12-16] MEDS ORDERED: AUGMENTIN 875 MG TAB (AMOXICILLIN/CLAVULANATE) PO SCH (14:30)
[2021-12-16] MEDS ORDERED: AMOX1TAB12 PO (14:34)
[2021-12-16] MEDS ORDERED: ACHD5005 PO (14:34)
[2021-12-16 14:51] VITALS: BP 135/89
[2021-12-16 15:37] LABS: BASOPHILS % (MANUAL) 1 %; LYMPHOCYTES % (MANUAL) 12 %; MONOCYTES % (MANUAL) 7 %; NEUTROPHILS % (MANUAL) 80 %
== END 2021-12-16 14:50 | disposition home or self-care (01) ==
LOC: EDUNIT# 12:25 → ER FS 12:26
DX: K04.7 Periapical abscess without sinus (principal); Z28.310 Unvaccinated for COVID-19
CPT/HCPCS: 36415; 80053; 81000; 85007; 85027; 86141